=== PATIENT | male | born 1935 | race Hispanic/Latino ===

== ENCOUNTER 2018-04-23 18:29 | Inpatient (IN) | payer OTHER ==
[~2018-04-23] VITALS: Ht 172.7 cm; Wt 64.1 kg
[~2018-04-23 18:29] MED LIST: AMLO2.5T3 PO; CHOL200074 PO; INSU100V12 SQ; LINA5TAB PO; PRAV40TA3 PO
[2018-04-23 21:10] VITALS: BP 126/62
[2018-04-23] MEDS ORDERED: ACETAMINOPHEN 325 MG TAB PO PRN (23:15)
[2018-04-23] MEDS ORDERED: ONDANSETRON HCL 4 MG/2 ML VIAL IV PRN (23:15)
[2018-04-23] MEDS ORDERED: DEXTROSE 50%-WATER 50 ML DISP.SYRIN IV PRN (23:30)
[2018-04-23] MEDS ORDERED: GLUCAGON 1MG KIT 1 MG ML IM PRN (23:30)
[2018-04-24] VITALS: BP 113/64
[2018-04-24] MEDS ORDERED: ZOSYN 3.375GM+NS 50ML 50 ML IV SCH ×2 (00:30→12:00)
[2018-04-24] MEDS ORDERED: ATOR10TA69 PO (00:53)
[2018-04-24] MEDS ORDERED: AEC81 PO (00:53)
[2018-04-24] MEDS ORDERED: DOXY100C40 PO (00:53)
[2018-04-24] MEDS ORDERED: TAMS0.4C32 PO (00:53)
[2018-04-24] MEDS ORDERED: FURO40TA5 PO (00:53)
[2018-04-24] MEDS ORDERED: CHOL200026 PO (00:53)
[2018-04-24] MEDS ORDERED: FURO20TA4 PO (00:53)
[2018-04-24] MEDS ORDERED: SPIR25TA PO (00:53)
[2018-04-24] MEDS ORDERED: ASPI-1012 PO (00:53)
[2018-04-24] MEDS ORDERED: APIX2.5T PO (00:53)
[2018-04-24] MEDS ORDERED: PIPE3.3712 IV (00:53)
[2018-04-24] MEDS ORDERED: IRON45TA10 PO (00:53)
[2018-04-24] MEDS ORDERED: LEVO250T59 PO (00:53)
[2018-04-24] MEDS ORDERED: ZOSYN 3.375GM+NS 50ML 50 ML IV ONE (01:17)
[2018-04-24] MEDS ORDERED: PHARMACY COMMUNICATION MISC SCH (01:45)
[2018-04-24 04:00] VITALS: BP 118/59
[2018-04-24 04:51] LABS: HEMATOCRIT 37.9 % (42-54); MEAN CORPUSCULAR HEMOGLOBIN 28.5 pg (27.0-33.0); MEAN CORPUSCULAR HGB CONC 32.9 g/dL (32.0-36.0); MEAN CORPUSCULAR VOLUME 86.7 fL (79-99); PLATELET COUNT (AUTO) 125 K/uL (130-400); RED BLOOD CELL COUNT(AUTO) 4.37 MIL/uL (4.50-6.20); WHITE BLOOD COUNT (AUTO) 5.8 K/uL (4.8-10.8)
[2018-04-24 05:12] LABS: INR 1.15 (0.85-1.15); PARTIAL THROMBOPLASTIN TIME 29.4 SEC (26.3-35.5)
[2018-04-24 05:13] LABS: ALBUMIN 2.6 g/dL (3.5-5.0); CREATININE 2.8 mg/dL (0.5-1.5); MAGNESIUM 2.3 mg/dL (1.80-2.40); POTASSIUM 4.4 mmol/L (3.5-5.1); TOTAL PROTEIN, SERUM 6.4 g/dL (6.0-8.3)
[2018-04-24] MEDS: INSULIN HUMULIN R 100 UNIT/ML 3ML SQ SCH ×4 (06:51→21:00)
[2018-04-24 07:00] VITALS: BP 138/71
[2018-04-24] MEDS ORDERED: SODIUM CHLORIDE 0.9% 1000ML 1,000 ML IV SCH (09:00)
[2018-04-24] MEDS: **HM** VIT D3 2000 UNITS PO SCH (09:00)
[2018-04-24] MEDS ORDERED: LEVOFLOXACIN 250 MG/D5W 50ML 50 ML IV SCH (09:00)
[2018-04-24] MEDS ORDERED: APIXABAN 2.5 MG TABLET PO SCH (09:00)
[2018-04-24] MEDS ORDERED: DOXYCYCLINE HYCLATE 100 MG TABLET PO SCH (09:00)
[2018-04-24] MEDS: LINAGLIPTIN 5 MG TABLET PO SCH (10:49)
[2018-04-24] MEDS: PANTOPRAZOLE SODIUM 40 MG TABLET.DR PO SCH (10:49)
[2018-04-24] MEDS: TAMSULOSIN HCL 0.4 MG CAP.ER.24H PO SCH (10:49)
[2018-04-24] MEDS: AMLODIPINE BESYLATE 2.5 MG TAB PO SCH (10:50)
[2018-04-24] MEDS: ASPIRIN 325 MG TABLET PO SCH (10:50)
[2018-04-24] MEDS: SPIRONOLACTONE 25 MG TAB PO SCH ×2 (10:50→16:57)
[2018-04-24] MEDS: FUROSEMIDE 40 MG TABLET PO SCH ×2 (10:50→16:57)
[2018-04-24] MEDS: FERROUS SULFATE 325 MG TABLET.DR PO SCH (10:50)
[2018-04-24 11:00] VITALS: BP 135/66
[2018-04-24 15:48] VITALS: BP 103/53
[2018-04-24 19:00] VITALS: BP 123/71
[2018-04-24] MEDS: DOXYCYCLINE 100MG+NS 250ML 250 ML IV SCH (19:10)
[2018-04-24] MEDS: ATORVASTATIN CALCIUM 10 MG TABLET PO SCH (21:47)
[2018-04-25] VITALS (19 sets, daily range): BP systolic 99–137; BP diastolic 44–74
[2018-04-25 05:05] LABS: HEMATOCRIT 36.6 % (42-54); MEAN CORPUSCULAR HGB CONC 33.2 g/dL (32.0-36.0); MEAN CORPUSCULAR VOLUME 87.5 fL (79-99); PLATELET COUNT (AUTO) 138 K/uL (130-400); RED BLOOD CELL COUNT(AUTO) 4.18 MIL/uL (4.50-6.20); RED CELL DISTRIBUTION WIDTH 15.7 % (11.0-15.5); WHITE BLOOD COUNT (AUTO) 5.4 K/uL (4.8-10.8)
[2018-04-25 05:12] LABS: CREATININE 2.7 mg/dL (0.5-1.5); POTASSIUM 4.1 mmol/L (3.5-5.1)
[2018-04-25] MEDS: INSULIN HUMULIN R 100 UNIT/ML 3ML SQ SCH ×4 (06:26→21:00)
[2018-04-25] MEDS: DOXYCYCLINE 100MG+NS 250ML 250 ML IV SCH ×2 (07:24→19:20)
[2018-04-25] MEDS: SPIRONOLACTONE 25 MG TAB PO SCH ×2 (08:03→16:54)
[2018-04-25] MEDS: TAMSULOSIN HCL 0.4 MG CAP.ER.24H PO SCH (08:04)
[2018-04-25] MEDS: FERROUS SULFATE 325 MG TABLET.DR PO SCH (08:04)
[2018-04-25] MEDS: AMLODIPINE BESYLATE 2.5 MG TAB PO SCH (08:04)
[2018-04-25] MEDS: PANTOPRAZOLE SODIUM 40 MG TABLET.DR PO SCH (08:04)
[2018-04-25] MEDS: FUROSEMIDE 40 MG TABLET PO SCH ×2 (08:04→16:55)
[2018-04-25] MEDS: ASPIRIN 325 MG TABLET PO SCH (08:06)
[2018-04-25] MEDS: **HM** VIT D3 2000 UNITS PO SCH (08:07)
[2018-04-25] MEDS: LINAGLIPTIN 5 MG TABLET PO SCH (08:42)
[2018-04-25] MEDS ORDERED: LIDOCAINE PF 2% 5ML ABBOJECT ONE ×2 (16:53→16:58)
[2018-04-25] MEDS ORDERED: ONDANSETRON HCL 4 MG/2 ML VIAL ONE (16:54)
[2018-04-25] MEDS ORDERED: DEXAMETHASONE SOD PHOSPHATE 10MG/ML 1ML VIAL ONE (16:54)
[2018-04-25] MEDS ORDERED: PROPOFOL 10 MG/ML 20ML VIAL IV ONE (16:55)
[2018-04-25] MEDS ORDERED: FENTANYL CITRATE PF 50 MCG/1 ML 2ML VIAL ONE (16:55)
[2018-04-25] MEDS ORDERED: MIDAZOLAM HCL 1 MG/ML 2ML VIAL ONE (16:55)
[2018-04-25] MEDS ORDERED: BUPIVACAINE/PF 0.5% 30ML VIAL ONE (17:23)
[2018-04-25] MEDS ORDERED: LIDOCAINE HCL 1% 20 ML VIAL ONE (17:23)
[2018-04-25] MEDS: ATORVASTATIN CALCIUM 10 MG TABLET PO SCH (22:01)
[2018-04-26] VITALS (7 sets, daily range): BP systolic 99–140; BP diastolic 52–67
[2018-04-26] MEDS ORDERED: HYDROMORPHONE HCL 0.5 MG/0.5 ML ML IVP PRN (01:45)
[2018-04-26] MEDS ORDERED: MORPHINE SULFATE 2 MG/ML 1ML SYG IVP PRN (01:45)
[2018-04-26] MEDS: DOXYCYCLINE 100MG+NS 250ML 250 ML IV SCH ×3 (06:59→18:51)
[2018-04-26] MEDS: INSULIN HUMULIN R 100 UNIT/ML 3ML SQ SCH ×4 (07:30→21:00)
[2018-04-26] MEDS: **HM** VIT D3 2000 UNITS PO SCH (09:00)
[2018-04-26] MEDS: FERROUS SULFATE 325 MG TABLET.DR PO SCH (10:49)
[2018-04-26] MEDS: ASPIRIN 325 MG TABLET PO SCH (10:49)
[2018-04-26] MEDS: SPIRONOLACTONE 25 MG TAB PO SCH ×2 (10:49→17:02)
[2018-04-26] MEDS: TAMSULOSIN HCL 0.4 MG CAP.ER.24H PO SCH (10:49)
[2018-04-26] MEDS: AMLODIPINE BESYLATE 2.5 MG TAB PO SCH (10:49)
[2018-04-26] MEDS: ATORVASTATIN CALCIUM 10 MG TABLET PO SCH ×2 (10:49→21:17)
[2018-04-26] MEDS: LINAGLIPTIN 5 MG TABLET PO SCH (10:50)
[2018-04-26] MEDS: PANTOPRAZOLE SODIUM 40 MG TABLET.DR PO SCH (10:50)
[2018-04-26] MEDS: FUROSEMIDE 40 MG TABLET PO SCH ×2 (10:52→17:02)
[2018-04-26] MEDS: APIXABAN 2.5 MG TABLET PO SCH ×2 (21:00→21:17)
[2018-04-27 03:59] VITALS: BP 116/62
[2018-04-27 05:14] LABS: BASOPHILS % (AUTO) 0.5 % (0.0-5.0); EOSINOPHILS % (AUTO) 3.3 % (0.0-8.0); HEMATOCRIT 33.9 % (42-54); LYMPHOCYTES % (AUTO) 15.2 % (21.0-51.0); MEAN CORPUSCULAR HEMOGLOBIN 29.3 pg (27.0-33.0); MEAN CORPUSCULAR HGB CONC 33.6 g/dL (32.0-36.0); MEAN CORPUSCULAR VOLUME 87.1 fL (79-99); MONOCYTES % (AUTO) 13.8 % (3.0-13.0); NEUTROPHILS % (AUTO) 67.2 % (40.0-77.0); PLATELET COUNT (AUTO) 113 K/uL (130-400); RED CELL DISTRIBUTION WIDTH 16.1 % (11.0-15.5); WHITE BLOOD COUNT (AUTO) 6.5 K/uL (4.8-10.8)
[2018-04-27 05:24] LABS: CREATININE 2.4 mg/dL (0.5-1.5); POTASSIUM 4.1 mmol/L (3.5-5.1)
[2018-04-27] MEDS: INSULIN HUMULIN R 100 UNIT/ML 3ML SQ SCH ×4 (06:44→20:59)
[2018-04-27] MEDS: DOXYCYCLINE 100MG+NS 250ML 250 ML IV SCH ×2 (06:45→20:55)
[2018-04-27 08:00] VITALS: BP 125/78
[2018-04-27] MEDS: APIXABAN 2.5 MG TABLET PO SCH ×4 (09:00→20:55)
[2018-04-27] MEDS: **HM** VIT D3 2000 UNITS PO SCH (09:00)
[2018-04-27] MEDS: LINAGLIPTIN 5 MG TABLET PO SCH (10:08)
[2018-04-27] MEDS: ASPIRIN 325 MG TABLET PO SCH (10:08)
[2018-04-27] MEDS: FERROUS SULFATE 325 MG TABLET.DR PO SCH (10:09)
[2018-04-27] MEDS: TAMSULOSIN HCL 0.4 MG CAP.ER.24H PO SCH (10:09)
[2018-04-27] MEDS: AMLODIPINE BESYLATE 2.5 MG TAB PO SCH (10:09)
[2018-04-27] MEDS: FUROSEMIDE 40 MG TABLET PO SCH ×2 (10:10→20:55)
[2018-04-27] MEDS: PANTOPRAZOLE SODIUM 40 MG TABLET.DR PO SCH (10:10)
[2018-04-27 11:50] VITALS: BP 122/78
[2018-04-27] MEDS: SPIRONOLACTONE 25 MG TAB PO SCH ×2 (14:25→16:53)
[2018-04-27 16:00] VITALS: BP 113/52
[2018-04-27 19:35] VITALS: BP 135/55
[2018-04-27] MEDS ORDERED: LACTULOSE 20 GM/30 ML UDCUP PO SCH (20:30)
[2018-04-27] MEDS: ATORVASTATIN CALCIUM 10 MG TABLET PO SCH (20:56)
[2018-04-27 23:44] VITALS: BP 108/57
[2018-04-28 03:48] VITALS: BP 106/61
[2018-04-28 05:38] LABS: BASOPHILS % (AUTO) 0.5 % (0.0-5.0); EOSINOPHILS % (AUTO) 1.6 % (0.0-8.0); HEMATOCRIT 34.8 % (42-54); LYMPHOCYTES % (AUTO) 9.6 % (21.0-51.0); MEAN CORPUSCULAR HEMOGLOBIN 28.4 pg (27.0-33.0); MEAN CORPUSCULAR VOLUME 86.3 fL (79-99); MONOCYTES % (AUTO) 11.4 % (3.0-13.0); NEUTROPHILS % (AUTO) 76.9 % (40.0-77.0); PLATELET COUNT (AUTO) 100 K/uL (130-400); RED BLOOD CELL COUNT(AUTO) 4.03 MIL/uL (4.50-6.20)
[2018-04-28 05:52] LABS: CREATININE 2.4 mg/dL (0.5-1.5); POTASSIUM 4.1 mmol/L (3.5-5.1)
[2018-04-28] MEDS: INSULIN HUMULIN R 100 UNIT/ML 3ML SQ SCH ×4 (06:02→20:28)
[2018-04-28] MEDS: DOXYCYCLINE 100MG+NS 250ML 250 ML IV SCH ×2 (06:03→20:32)
[2018-04-28 07:30] VITALS: BP 124/93
[2018-04-28] MEDS ORDERED: LACTULOSE 20 GM/30 ML UDCUP PO PRN (07:30)
[2018-04-28] MEDS: PANTOPRAZOLE SODIUM 40 MG TABLET.DR PO SCH (09:00)
[2018-04-28] MEDS: **HM** VIT D3 2000 UNITS PO SCH (09:00)
[2018-04-28] MEDS: ASPIRIN 325 MG TABLET PO SCH (09:22)
[2018-04-28] MEDS: FUROSEMIDE 40 MG TABLET PO SCH ×2 (09:22→16:52)
[2018-04-28] MEDS: TAMSULOSIN HCL 0.4 MG CAP.ER.24H PO SCH (09:22)
[2018-04-28] MEDS: FERROUS SULFATE 325 MG TABLET.DR PO SCH (09:22)
[2018-04-28] MEDS: APIXABAN 2.5 MG TABLET PO SCH ×2 (09:22→20:32)
[2018-04-28] MEDS: LINAGLIPTIN 5 MG TABLET PO SCH (09:22)
[2018-04-28] MEDS: SPIRONOLACTONE 25 MG TAB PO SCH ×2 (09:22→16:52)
[2018-04-28] MEDS: AMLODIPINE BESYLATE 2.5 MG TAB PO SCH (09:22)
[2018-04-28 11:00] VITALS: BP 104/73
[2018-04-28 16:00] VITALS: BP 120/48
[2018-04-28 19:00] VITALS: BP 99/65
[2018-04-28] MEDS: ATORVASTATIN CALCIUM 10 MG TABLET PO SCH (20:32)
[2018-04-29] VITALS: BP 119/73
[2018-04-29 04:00] VITALS: BP 110/54
[2018-04-29 04:51] LABS: BASOPHILS % (AUTO) 0.7 % (0.0-5.0); EOSINOPHILS % (AUTO) 4.4 % (0.0-8.0); HEMATOCRIT 32.7 % (42-54); LYMPHOCYTES % (AUTO) 12.4 % (21.0-51.0); MEAN CORPUSCULAR HEMOGLOBIN 29.6 pg (27.0-33.0); MEAN CORPUSCULAR HGB CONC 34.2 g/dL (32.0-36.0); MEAN CORPUSCULAR VOLUME 86.6 fL (79-99); MONOCYTES % (AUTO) 12.3 % (3.0-13.0); NEUTROPHILS % (AUTO) 70.2 % (40.0-77.0); PLATELET COUNT (AUTO) 106 K/uL (130-400); RED BLOOD CELL COUNT(AUTO) 3.78 MIL/uL (4.50-6.20); RED CELL DISTRIBUTION WIDTH 15.9 % (11.0-15.5); WHITE BLOOD COUNT (AUTO) 7.3 K/uL (4.8-10.8)
[2018-04-29 05:00] LABS: POTASSIUM 3.8 mmol/L (3.5-5.1)
[2018-04-29 05:14] LABS: CREATININE 2.4 mg/dL (0.5-1.5)
[2018-04-29] MEDS: DOXYCYCLINE 100MG+NS 250ML 250 ML IV SCH ×2 (06:08→17:53)
[2018-04-29] MEDS: INSULIN HUMULIN R 100 UNIT/ML 3ML SQ SCH ×4 (06:08→20:24)
[2018-04-29 07:00] VITALS: BP 119/71
[2018-04-29] MEDS: **HM** VIT D3 2000 UNITS PO SCH (09:00)
[2018-04-29 11:00] VITALS: BP 102/62
[2018-04-29] MEDS: SPIRONOLACTONE 25 MG TAB PO SCH ×2 (11:06→17:52)
[2018-04-29] MEDS: APIXABAN 2.5 MG TABLET PO SCH ×2 (11:06→20:26)
[2018-04-29] MEDS: TAMSULOSIN HCL 0.4 MG CAP.ER.24H PO SCH (11:06)
[2018-04-29] MEDS: ASPIRIN 325 MG TABLET PO SCH (11:06)
[2018-04-29] MEDS: PANTOPRAZOLE SODIUM 40 MG TABLET.DR PO SCH (11:07)
[2018-04-29] MEDS: FUROSEMIDE 40 MG TABLET PO SCH ×2 (11:07→17:53)
[2018-04-29] MEDS: FERROUS SULFATE 325 MG TABLET.DR PO SCH (11:07)
[2018-04-29] MEDS: AMLODIPINE BESYLATE 2.5 MG TAB PO SCH (11:07)
[2018-04-29] MEDS ORDERED: FOLI0.8C PO (11:17)
[2018-04-29 16:00] VITALS: BP 150/61
[2018-04-29 19:00] VITALS: BP 119/71
[2018-04-29] MEDS: ATORVASTATIN CALCIUM 10 MG TABLET PO SCH (20:26)
[2018-04-30] VITALS: BP 127/68
[2018-04-30 04:00] VITALS: BP 122/68
[2018-04-30] MEDS: DOXYCYCLINE 100MG+NS 250ML 250 ML IV SCH ×2 (05:18→18:53)
[2018-04-30 05:20] LABS: BASOPHILS % (AUTO) 0.4 % (0.0-5.0); EOSINOPHILS % (AUTO) 3.2 % (0.0-8.0); LYMPHOCYTES % (AUTO) 10.9 % (21.0-51.0); MEAN CORPUSCULAR HEMOGLOBIN 28.7 pg (27.0-33.0); MEAN CORPUSCULAR HGB CONC 33.3 g/dL (32.0-36.0); MEAN CORPUSCULAR VOLUME 86.1 fL (79-99); MONOCYTES % (AUTO) 12.8 % (3.0-13.0); NEUTROPHILS % (AUTO) 72.7 % (40.0-77.0); PLATELET COUNT (AUTO) 104 K/uL (130-400); RED BLOOD CELL COUNT(AUTO) 3.83 MIL/uL (4.50-6.20); RED CELL DISTRIBUTION WIDTH 15.7 % (11.0-15.5); WHITE BLOOD COUNT (AUTO) 7.4 K/uL (4.8-10.8)
[2018-04-30 05:30] LABS: CREATININE 2.3 mg/dL (0.5-1.5); POTASSIUM 3.8 mmol/L (3.5-5.1)
[2018-04-30] MEDS: INSULIN HUMULIN R 100 UNIT/ML 3ML SQ SCH ×3 (06:47→18:57)
[2018-04-30 08:00] VITALS: BP 98/58
[2018-04-30] MEDS: **HM** VIT D3 2000 UNITS PO SCH (09:00)
[2018-04-30] MEDS: TAMSULOSIN HCL 0.4 MG CAP.ER.24H PO SCH (10:14)
[2018-04-30] MEDS: APIXABAN 2.5 MG TABLET PO SCH (10:14)
[2018-04-30] MEDS: AMLODIPINE BESYLATE 2.5 MG TAB PO SCH (10:14)
[2018-04-30] MEDS: FUROSEMIDE 40 MG TABLET PO SCH ×2 (10:14→18:42)
[2018-04-30] MEDS: FERROUS SULFATE 325 MG TABLET.DR PO SCH (10:14)
[2018-04-30] MEDS: PANTOPRAZOLE SODIUM 40 MG TABLET.DR PO SCH (10:14)
[2018-04-30] MEDS: ASPIRIN 325 MG TABLET PO SCH (10:14)
[2018-04-30] MEDS: SPIRONOLACTONE 25 MG TAB PO SCH ×2 (10:18→18:42)
[2018-04-30 12:00] VITALS: BP 121/76
[2018-04-30 16:00] VITALS: BP 105/62
[2018-04-30 19:25] VITALS: BP 112/62
== END 2018-04-30 22:22 | DRG 475 ==
LOC: 3BH 20:52 → EEVIPCON 20:52
PROVIDERS: ADMIT Internal Medicine; ATTEND Internal Medicine
PROC: 0Y6N0Z9 Detachment at Left Foot, Partial 1st Ray, Open Approach (ICD-10-PCS; principal; 2018-04-25 18:06)
DX: M86.9 Osteomyelitis, unspecified (principal); I13.0 Hypertensive heart and chronic kidney disease with heart failure and stage 1 through stage 4 chronic kidney disease, or unspecified chronic kidney disease; N17.9 Acute kidney failure, unspecified; E11.621 Type 2 diabetes mellitus with foot ulcer; E11.69 Type 2 diabetes mellitus with other specified complication; L97.529 Non-pressure chronic ulcer of other part of left foot with unspecified severity; S41.112A Laceration without foreign body of left upper arm, initial encounter; I48.91 Unspecified atrial fibrillation; I25.10 Atherosclerotic heart disease of native coronary artery without angina pectoris; I50.9 Heart failure, unspecified; N18.3 Chronic kidney disease, stage 3 (moderate); I25.5 Ischemic cardiomyopathy; E11.42 Type 2 diabetes mellitus with diabetic polyneuropathy; E11.22 Type 2 diabetes mellitus with diabetic chronic kidney disease; E11.51 Type 2 diabetes mellitus with diabetic peripheral angiopathy without gangrene; I35.0 Nonrheumatic aortic (valve) stenosis; I48.2 Chronic atrial fibrillation; N40.0 Benign prostatic hyperplasia without lower urinary tract symptoms; S98.112A Complete traumatic amputation of left great toe, initial encounter; Z95.1 Presence of aortocoronary bypass graft; Z79.01 Long term (current) use of anticoagulants; Z89.419 Acquired absence of unspecified great toe; Y93.89 Activity, other specified; Y92.89 Other specified places as the place of occurrence of the external cause; Y99.8 Other external cause status; Z83.3 Family history of diabetes mellitus; Z80.3 Family history of malignant neoplasm of breast
CPT/HCPCS: 36415; 71045; 73718; 80048; 80053; 80061; 82948; 83036; 83735; 85025; 85027; 85610; 85730; 87040; 87070; 87076; 87205; 88304; 88305; 88311; 93005; 97039; J1100; J1815; J2001; J2250; J2405; J2543; J2704; J3010; J3490